=== PATIENT | female | born 1985 | race Caucasian/White ===

== ENCOUNTER → 2020-01-18 09:46 | Outpatient (CLI) | payer OTHER, SELFPAY ==
[2020-01-22 01:10] LABS: COVID19 Sendout Not Detected (Not Detected)
== END ==
PROVIDERS: Family Provider Family Medicine; PCP Family Medicine; Visit Provider Physician Assistant
DX: Z03.818 Encounter for observation for suspected exposure to other biological agents ruled out (principal)
CPT/HCPCS: 87635

== ENCOUNTER 2021-05-13 22:23 | Emergency (ER) | payer OTHER, SELFPAY ==
[2021-05-13 22:24] VITALS: BP 119/80; PULSE 98; RESP 22; TEMP 36.9; O2SAT 98; BMI 33.7
--- NOTE | 2021-05-13 22:42 | DI.CT.S_ITS ---
PROCEDURE: CT HEAD/BRAIN WO CON INDICATIONS: fell, head injury, alcohol intoxication TECHNIQUE: Noncontrast 4.5 mm thick angled axial sections acquired from the foramen magnum to the vertex, with coronal and sagittal reformats. For radiation dose reduction, the following was used: automated exposure control, adjustment of mA and/or kV according to patient size. COMPARISON: None. FINDINGS: Image quality: Good. CSF spaces: Basal cisterns are patent. No extra-axial fluid collections. Ventricles are normal in size and shape. Brain: No midline shift. No intracranial masses or hemorrhage. Abdalla-white matter interface is normal. Skull and face: Calvarium and visualized facial bones are intact, without suspicious lesions. Sinuses: Visualized sinuses and mastoids are clear. IMPRESSION: No acute intracranial abnormality. Dictated by: Quentin Olivares M.D. on 05/13/2021 at 23:33 Approved by: Quentin Olivares M.D. on 05/13/2021 at 23:34
--- NOTE | 2021-05-13 22:45 | DI.CT.S_ITS ---
PROCEDURE: CT CERVICAL SPINE WO CON INDICATIONS: neck pain after fall, intoxicated TECHNIQUE: Noncontrast 3 mm thick sections acquired from the skull base to the T4 level. Sagittal and coronal reformats were then constructed. For radiation dose reduction, the following was used: automated exposure control, adjustment of mA and/or kV according to patient size. COMPARISON: [facility], CT, CT HEAD/BRAIN WO CON, 05/13/2021, 22:52. FINDINGS: Image quality: Good. Repeat acquisition due to motion. Bones: No fractures or dislocations. Visualized superior ribs are intact. Soft tissues: Prevertebral soft tissues are normal in thickness. No paravertebral hematomas. No apical pneumothoraces. IMPRESSION: No acute osseous abnormality. Dictated by: Quentin Olivares M.D. on 05/13/2021 at 23:37 Approved by: Quentin Olivares M.D. on 05/13/2021 at 23:40
[2021-05-13 23:04] LABS: Add Manual Diff / Slide Review NO; Basophils Absolute Auto 100 /uL (0-100); Basophils Percent Auto 1.3 % (0-2); Eosinophils Absolute Auto 200 /uL (0-450); Hematocrit 42.2 % (36-46); Hemoglobin 14.4 g/dL (12.0-16.0); Lymphocytes Absolute Auto 3600 /uL (1100-4500); Lymphocytes Percent Auto 38.2 % (25-40); Mean Corpuscular HGB Conc 34.1 % (30-36); Mean Corpuscular Hemoglobin 31.2 PG (26-34); Mean Corpuscular Volume 91.6 fL (80-100); Monocytes Absolute Auto 800 /uL (0-900); Monocytes Percent Auto 8.7 % (3-14); Neutrophils Absolute Auto 4700 /uL (1500-7000); Neutrophils Percent Auto 49.8 % (50-75); Platelet Count 373 X10^3/uL (150-400); Red Cell Distribution Width 13.3 % (11.6-14.8); White Blood Cell Count 9.4 X10^3/uL (4.5-11.0)
--- NOTE | 2021-05-13 23:08 | PC.NURSE ---
Addendum entered by Lana Kelley R.N. 05/13/21 23:12: Patient removed IV and c-collar, refusing further care. Original Note: Spoke to patient's mom with patient's permission. Notified her of patient's status and plan for which family member would be with patient during hospital stay and discharge. Designated family member per patient's request is Jermain, her uncle.
[2021-05-13 23:13] LABS: Alanine Aminotransferase 22 IU/L (<35); Albumin Globulin Ratio 1.6 (1.0-2.8); Alkaline Phosphatase 94 U/L (38-126); Aspartate Aminotransferase 23 IU/L (14-36); BUN Creatinine Ratio 10.3 (6-22); Bilirubin Total 0.3 mg/dL (0.2-1.3); Blood Urea Nitrogen 8 mg/dL (7-17); Calcium 9.6 mg/dL (8.4-10.2); Carbon Dioxide 21 mmol/L (22-32); Chloride 114 mmol/L (98-107); Estimated Glomerular Filt Rate > 60.0 mL/min (>60); Ethanol (ETOH) 270 mg/dL; Globulin 3.2 g/dL (1.7-4.1); Glucose 122 mg/dL (70-100); HEMOLYSIS < 15 (0-50); Potassium 4.2 mmol/L (3.4-5.1); Sodium 148 mmol/L (137-145); Total Protein 8.2 g/dL (6.3-8.2)
--- NOTE | 2021-05-13 23:20 | ED_ITS ---
HPI - Alcohol General Chief Complaint: Toxicology Problem Stated Complaint: ETOH/FALL Time Seen by Provider: 05/13/21 22:41 Source: patient Mode of arrival: EMS History of Present Illness HPI narrative: 35-year-old woman acutely intoxicated was being belligerent and fell apparently sustaining an injury to the left latter day area she is brought into the emergency room by police for further evaluation. She is acutely intoxicated with alcohol, dramatic affect of behavior in completely uncooperative with exam. She does have significant tenderness along her cervical spine with palpation. She has a fairly superficial laceration along the left latter day. CT scan of the head and neck are both indicated. Related Data Home Medications Medication Instructions Recorded Confirmed citalopram 20 mg tablet 20 mg PO DAILY 09/19/19 09/19/19 Allergies Allergy/AdvReac Type Severity Reaction Status Date / Time hydrocodone Allergy Mild ITCHING Verified 05/13/21 22:37 Review of Systems Review of Systems ROS Unobtainable: Unobtainable due to medical condition Patient History alcohol intake frequency: 3 or more drinks per day Alcohol type: beer and wine Exam Narrative Exam Narrative: General: Intoxicated, belligerent, crying but able to speak in full sentences. HEENT: Moist mucous membranes, injected l sclera with reactive pupils, 2 cm partial-thickness laceration to left latter day Neck: Tender midline along the cervical spine in the setting of acute alcohol intoxication supple Respiratory: Lungs are clear to auscultation, no wheezing no rales no rhonchi. Full and symmetrical air movement Cardiac: Regular rate and rhythm no murmurs no bruits Abdomen: Soft, nontender, good bowel tones, no flank pain Skin: Warm and dry, no rashes Neurologic: Unsteady gait but Grossly neurologically intact with no obvious asymmetries or abnormalities Extremities: No trauma, well perfused Psych: Intoxicated and uncooperative, poor overall inside Initial Vital Signs Initial Vital Signs: Vital Signs Temperature 98.5 F 05/13/21 22:24 Pulse Rate 98 H 05/13/21 22:24 Respiratory Rate 22 05/13/21 22:24 Blood Pressure 119/80 05/13/21 22:24 Pulse Oximetry 98 05/13/21 22:24 Procedures Laceration Repair left latter day: Time of procedure: 23:21 Site: scalp Size (cm): 2 Description: linear Depth: simple, single layer Pre-repair: wound explored Skin layer closed with: dermabond Course Orders Ordered: ED Orders 05/13/21 22:42 CT head/brain wo con Stat 05/13/21 22:45 CT cervical spine wo con Stat 05/13/21 22:54 Complete Blood Count AUTO DIFF Stat Comprehensive Metabolic Panel Stat Ethanol (ETOH) Stat Discontinued Medications Sodium Chloride (Normal Saline 0.9%) 1,000 mls @ 1,000 mls/hr IV BOLUS ONE Stop: 05/13/21 23:40 Last Admin: 05/13/21 23:16 Dose: Not Given Documented by: [facility] Ondansetron HCl (Ondansetron 4 Mg/2 Ml Inj) 4 mg IV NOW ONE Stop: 05/13/21 22:42 Last Admin: 05/13/21 23:16 Dose: Not Given Documented by: [facility] Vital Signs Vital signs: Vital Signs - 8 hr 05/13/21 22:24 05/14/21 00:01 Temperature 98.5 F Pulse Rate 98 H 83 Respiratory Rate 22 18 Blood Pressure 119/80 119/74 Pulse Oximetry 98 99 MDM - Alcohol Lab Data Result diagrams: 05/13/21 22:54 05/13/21 22:54 Labs: Lab Results 05/13/21 05/13/21 Range/Units 22:54 22:54 WBC 9.4 (4.5-11.0) X10^3/uL RBC 4.60 (4.0-5.2) X10^6/uL Hgb 14.4 (12.0-16.0) g/dL Hct 42.2 (36-46) % MCV 91.6 (80-100) fL MCH 31.2 (26-34) PG MCHC 34.1 (30-36) % RDW 13.3 (11.6-14.8) % Plt Count 373 (150-400) X10^3/uL Neut % (Auto) 49.8 L (50-75) % Lymph % (Auto) 38.2 (25-40) % Weber % (Auto) 8.7 (3-14) % Eos % (Auto) 2.0 (2-4) % Baso % (Auto) 1.3 (0-2) % Neut # (Auto) 4700 (1245-4910) /uL Lymph # (Auto) 3600 (2320-6582) /uL Weber # (Auto) 800 (0-900) /uL Eos # (Auto) 200 (0-450) /uL Baso # (Auto) 100 (0-100) /uL Sodium 148 H (137-145) mmol/L Potassium 4.2 (3.4-5.1) mmol/L Chloride 114 H (98-107) mmol/L Carbon Dioxide 21 L (22-32) mmol/L BUN 8 (7-17) mg/dL Creatinine 0.78 (0.52-1.04) mg/dL Estimated GFR > 60.0 (>60) mL/min BUN/Creatinine Ratio 10.3 (6-22) Glucose 122 H (70-100) mg/dL Calcium 9.6 (8.4-10.2) mg/dL Total Bilirubin 0.3 (0.2-1.3) mg/dL AST 23 (14-36) IU/L ALT 22 (<35) IU/L Alkaline Phosphatase 94 (38-126) U/L Total Protein 8.2 (6.3-8.2) g/dL Albumin 5.0 (3.5-5.0) g/dL Globulin 3.2 (1.7-4.1) g/dL Albumin/Globulin Ratio 1.6 (1.0-2.8) Ethyl Alcohol 270 H ( - 10) mg/dL Imaging Data CT scan - head: Radiologist's Impressoin: FINDINGS:? Image quality:? Good.? ? CSF spaces:? Basal cisterns are patent.? No extra-axial fluid collections.? Ventricles are normal in size and shape.? ? Brain:? No midline shift.? No intracranial masses or hemorrhage.? Abdalla-white matter interface is normal.? ? Skull and face:? Calvarium and visualized facial bones are intact, without suspicious lesions.? ? Sinuses:? Visualized sinuses and mastoids are clear.? ? IMPRESSION:? No acute intracranial abnormality. ? ? Dictated by: Quentin Olivares M.D. on 05/13/2021 at 23:33 ? ? Approved by: Quentin Olivares M.D. on 05/13/2021 at 23:34 ? CT - cervical spine: Radiologist's Impressoin: FINDINGS:? Image quality:? Good.? Repeat acquisition due to motion. ? Bones:? No fractures or dislocations.? Visualized superior ribs are intact.? ? Soft tissues:? Prevertebral soft tissues are normal in thickness.? No paravertebral hematomas.? No apical pneumothoraces.? ? ? IMPRESSION:? No acute osseous abnormality. ? ? ? Dictated by: Quentin Olivares M.D. on 05/13/2021 at 23:37 ? ? MDM Narrative Medical decision making narrative: 35-year-old woman intoxicated fell brought to the emergent C department by police. CT scan of the head was done because of intoxication with head injury(small laceration) she had tenderness along her cervical spine and a CT scan of the cervical spine was also done. Labs are reassuring. Small laceration is repaired with skin glue. She remains intoxicated, however, her completely sober an absolutely appropriate uncle is available in the emergency department to assume care and take her home safely. She is safe for home discharge Discharge Plan Departure Patient Disposition: Home Clinical Impression: Laceration Alcoholic intoxication Qualifiers: Complication of substance-induced condition: uncomplicated Qualified Code(s): F10.920 - Alcohol use, unspecified with intoxication, uncomplicated Fall Qualifiers: Encounter type: initial encounter Qualified Code(s): W19.XXXA - Unspecified fall, initial encounter Instructions: DI for Laceration Repair of the Scalp, DI for Alcohol Use Disorder Activity Restrictions/Additional Instructions: You became intoxicated tonight fell down were brought to the emergency department by police for further evaluation. You have a fairly superficial cut on the left side of your forehead. Skin glue was used to hold this together. Please do not pick at the glue. It is okay to get the area wet and then pat dry after shower. The skin glue will peel off in 3-5 days and the wound should be healing fine at that point. Your alcohol level was 270. Please consider re-evaluating her overall alcohol use and how it is impacting your life and health. Because you fell down and hit your head while intoxicated, we worry about bleeding into your head or neck injuries that you may not be aware of immediately. Fortunately your head CT was nice and normal. Your neck was tender to touch and we worry about broken necks when you fall while intoxicated. Fortunately, the CT scan of your neck was also normal. I expect that you will have parts in pieces that hurt quite a bit tomorrow as you are waking up. Using 400 mg of ibuprofen (2 [id number] pills) and 1 Tylenol every 6 hours can be very helpful in controlling pain. Make sure that you hydrate well. Prescriptions: No Action citalopram 20 mg tablet 20 mg PO DAILY RF: 0 Referrals: Jermain Romero MD [Primary Care Provider] -
[2021-05-14 00:01] VITALS: BP 119/74; PULSE 83; RESP 18; O2SAT 99
== END 2021-05-14 00:08 | disposition home or self-care (01) ==
PROVIDERS: Emergency Provider Emergency Medicine; Family Provider Family Medicine; PCP Family Medicine
DX: F10.929 Alcohol use, unspecified with intoxication, unspecified (principal); S01.81XA Laceration without foreign body of other part of head, initial encounter; M54.2 Cervicalgia; Y90.8 Blood alcohol level of 240 mg/100 ml or more; W19.XXXA Unspecified fall, initial encounter
CPT/HCPCS: 36415; 70450; 72125; 80053; 80320; 85025; 99284